=== PATIENT | female | born 1945 | race Hispanic/Latino ===

== ENCOUNTER → 2017-05-18 | Outpatient (CLI) | payer OTHER | END | disposition home or self-care (01) | LOC: RAH 08:50 | PROVIDERS: ATTEND Family Medicine | DX: Z12.31 Encounter for screening mammogram for malignant neoplasm of breast (principal) | CPT/HCPCS: 77067 ==

== ENCOUNTER → 2017-07-16 | Outpatient (CLI) | payer OTHER | LOC: OIH 10:39 | PROVIDERS: ATTEND Family Medicine | DX: M79.674 Pain in right toe(s) (principal); M79.671 Pain in right foot | CPT/HCPCS: 73630 ==

== ENCOUNTER → 2018-08-26 | Outpatient (CLI) | payer OTHER | END | disposition home or self-care (01) | LOC: OIH 15:51 | PROVIDERS: ATTEND Family Medicine | DX: M47.816 Spondylosis without myelopathy or radiculopathy, lumbar region (principal); M85.88 Other specified disorders of bone density and structure, other site | CPT/HCPCS: 72100 ==

== ENCOUNTER → 2020-03-24 | Outpatient (CLI) | payer OTHER | END | disposition home or self-care (01) | LOC: RAH 10:15 | PROVIDERS: ATTEND Family Medicine | DX: Z12.31 Encounter for screening mammogram for malignant neoplasm of breast (principal) | CPT/HCPCS: 77067 ==

== ENCOUNTER → 2022-08-24 | Outpatient (CLI) | payer OTHER | END | disposition home or self-care (01) | LOC: RAH 12:21 | PROVIDERS: ATTEND Family Medicine | DX: I34.0 Nonrheumatic mitral (valve) insufficiency (principal); R94.31 Abnormal electrocardiogram [ECG] [EKG] | CPT/HCPCS: 93306 ==

== ENCOUNTER → 2022-11-29 | Outpatient (CLI) | payer OTHER | END | disposition home or self-care (01) | LOC: RAH 07:52 | PROVIDERS: ATTEND Family Medicine | DX: Z12.31 Encounter for screening mammogram for malignant neoplasm of breast (principal) | CPT/HCPCS: 77067 ==

== ENCOUNTER → 2023-12-18 | Outpatient (CLI) | payer OTHER | END | disposition home or self-care (01) | LOC: RAH 14:10 | PROVIDERS: ATTEND Family Medicine | DX: Z12.31 Encounter for screening mammogram for malignant neoplasm of breast (principal); M85.88 Other specified disorders of bone density and structure, other site; R92.333 Mammographic heterogeneous density, bilateral breasts; M81.8 Other osteoporosis without current pathological fracture; Z78.0 Asymptomatic menopausal state | CPT/HCPCS: 77067; 77080 ==

== ENCOUNTER → 2024-08-14 | Outpatient (CLI) | payer OTHER ==
--- NOTE | 2024-08-14 12:48 | HMCIMG ---
HAND 3+VWS LT HISTORY: Left hand pain COMPARISON: None TECHNIQUE: 3 images of left hand were obtained. FINDINGS: Radiocarpal joint space narrowing and interphalangeal joint space narrowing are seen. There is bone density noted adjacent to the distal portion of the false metacarpal bone. This measures 6.9 x 6.5 mm. If needed, MRI or CT may be performed for further evaluation. There is no acute displaced fracture or dislocation. Degenerative changes are seen. IMPRESSION: 1. Findings as described above.
== END | disposition home or self-care (01) ==
LOC: RAH 10:05
PROVIDERS: ATTEND Family Medicine
DX: M19.041 Primary osteoarthritis, right hand (principal); M79.642 Pain in left hand
CPT/HCPCS: 73130

== ENCOUNTER → 2024-12-18 | Outpatient (CLI) | payer OTHER ==
--- NOTE | 2024-12-23 11:12 | HMCIMG ---
DIGITAL BILATERAL SCREENING MAMMOGRAM Technique: The digital mammographic examination of both breasts in craniocaudal and mediolateral oblique views along with CAD was obtained. History: This is a 79 years year-old female 4, para4 Ab0. Patient has no family history of breast cancer. Patient has no complaint Reference:Prior mammogram from 12/18/2023, 11/29/2022, 08/24/2022, 09/01/2021, 03/24/2020, 06/03/2018 and 05/18/2017 are available for comparison.. Breast composition: Breast composition D: The breasts are extremely dense, which lowers the sensitivity of mammography. Finding: The digital mammographic examination of both breasts in craniocaudal and mediolateral oblique view along with CAD demonstrates both breasts to BE dense. There is a solitary left breast calcification unchanged from prior study. There is no evidence of any dendritic mass, cluster microcalcification or architectural distortion. The retromammary fat appears to be normal. IMPRESSION: Unchanged from prior mammography. NO RADIOGRAPHIC EVIDENCE OF MALIGNANT CHANGES. WE WOULD RECOMMEND ANNUAL FOLLOW UP WITH TOMOSYNTHESIS UNLESS OTHERWISE CLINICALLY INDICATED. FINAL ASSESSMENT: ACR: BI-RAD- 2. Benign: Also a negative assessment; finding(s) benign abnormalities. Management: Routine mammography screening. Likelihood of Cancer: Essentially 0% likelihood of malignancy. NOTE: IF A WORK-UP OF THIS PATIENT LEADS TO A BIOPSY, PLEASE FORWARD A COPY OF THE PATHOLOGY REPORT TO OUR OFFICE REQUIRED BY [facility] [employer] JANUARY 28, 1994. A NEGATIVE MAMMOGRAM SHOULD NOT PRECLUDE BIOPSY OF A CLINICALLY PALPABLE SUSPICIOUS MASS, 10% OF BREAST CANCERS ARE MAMMOGRAPHICALLY OCCULT. THIS MAMMOGRAPHY FACILITY IS FULLY ACCREDITED BY THE [employer]OD AND [employer]UG [employer] (FDA). THANK YOU FOR THIS REFERRAL.
== END | disposition home or self-care (01) ==
LOC: RAH 09:51
PROVIDERS: ATTEND Family Medicine
DX: Z12.31 Encounter for screening mammogram for malignant neoplasm of breast (principal); R92.343 Mammographic extreme density, bilateral breasts
CPT/HCPCS: 77067